=== PATIENT | female | born 1970 | race Caucasian/White ===

== ENCOUNTER 2017-11-23 09:15 | Inpatient (IN) | payer OTHER ==
[~2017-11-23] VITALS: Ht 157.5 cm; Wt 81.9 kg
[~2017-11-23 09:15] MED LIST: BECL8.7A7 PO; CHOL2000 PO; DOCU100C40 PO; ESCI20TA38 PO; ESTR42.53 VG; HYDR-3972 PO; IPRA3AMP IH; METF500T4 PO; MULT-342 PO; PROG100C6 PO; THY60T PO; WARF2TAB PO
[2017-11-23 09:38] LABS: BASOPHILS % (AUTO) 0.6 % (0-1); EOSINOPHILS # (AUTO) 0.6 X10'3 (0-0.9); EOSINOPHILS % (AUTO) 8.6 % (0-6); HEMOGLOBIN 14.1 g/dl (12.0-16.0); LYMPHOCYTES # (AUTO) 2.2 X10'3 (1.1-4.8); LYMPHOCYTES % (AUTO) 30.9 % (21-51); MEAN CORPUSCULAR HEMOGLOBIN 30.7 PG (27.0-31.0); MEAN CORPUSCULAR HGB CONC 34.4 % (33.0-36.5); MEAN CORPUSCULAR VOLUME 89.1 FL (78-98); MEAN PLATELET VOLUME 8.2 FL (7.4-10.4); MONOCYTES # (AUTO) 0.4 X10'3 (0-0.9); MONOCYTES % (AUTO) 5.7 % (2-12); NEUTROPHILS # (AUTO) 3.8 X10'3 (1.8-7.7); NEUTROPHILS % (AUTO) 54.2 % (42-75); PLATELET COUNT 223 X10'3 (140-440); RED BLOOD COUNT 4.61 X10'6 (4.20-5.60); RED CELL DISTRIBUTION WIDTH 14.2 % (11.5-14.5); WHITE BLOOD COUNT 7.1 X10'3 (4.5-11.0)
[2017-11-23 09:49] LABS: INR 2.3 INR; PARTIAL THROMBOPLASTIN TIME 38 SECONDS (22-32); PROTHROMBIN TIME 23.4 SECONDS (9.0-12.0)
[2017-11-23 09:57] LABS: ALANINE AMINOTRANSFERASE 31 U/L (12-78); ALBUMIN 3.7 G/DL (3.4-5.0); ALBUMIN/GLOBULIN RATIO 0.9 (1.1-1.5); ALKALINE PHOSPHATASE 95 IU/L (46-116); ANION GAP 9 (8-16); ASPARTATE AMINO TRANSFERASE 20 U/L (10-37); BILIRUBIN,TOTAL 0.3 MG/DL (0.1-1.0); BLOOD UREA NITROGEN 16 MG/DL (7-18); BUN/CREATININE RATIO 16.2 (6.6-38.0); CALCIUM 8.8 MG/DL (8.5-10.1); CHLORIDE 109 MMOL/L (99-107); CREATININE 0.99 MG/DL (0.40-0.90); GLUCOSE 101 MG/DL (70-104); POTASSIUM 4.1 MMOL/L (3.5-5.1); SODIUM 146 MMOL/L (135-145); TOTAL PROTEIN 7.6 G/DL (6.4-8.2); TROPONIN I < 0.04 NG/ML (0.0-0.05); eGFR 60 ML/MIN
[2017-11-23] MEDS ORDERED: aspirin 325mg tablet PO ONE (10:00)
[2017-11-23] MEDS ORDERED: dextrose 50%-water 50ml dispensing syringe IV PRN ×2 (10:25)
[2017-11-23] MEDS ORDERED: HYDROcodone/acetaminophen 10/325mg tab PO PRN (10:25)
[2017-11-23] MEDS ORDERED: glucagon, human recombinant 1mg kit SUBCUT PRN (10:25)
[2017-11-23] MEDS ORDERED: dextrose ORAL solution 15 GM/59 ML bottle PO PRN ×2 (10:25)
[2017-11-23] MEDS ORDERED: magnesium hydroxide 30ml (MOM) UD suspension PO PRN (10:25)
[2017-11-23] MEDS ORDERED: insulin Lispro (HumaLOG) vial - multi-dose SQ SCH (10:25)
[2017-11-23] MEDS ORDERED: MESSAGE TO PHARMACY PO ONE (10:25)
[2017-11-23] MEDS: normal saline 1000ml 1,000 ML IV SCH ×2 (10:54→13:19)
[2017-11-23 11:08] LABS: HEMOGLOBIN A1C 5.9 % (4.5-6.2)
[2017-11-23] MEDS ORDERED: LORazepam 2 mg/ml vial IV ONE (12:30)
[2017-11-23] MEDS: ipratropium/albuterol 3ml nebule IH SCH ×2 (14:00→20:00)
[2017-11-23] MEDS ORDERED: OMEP-50 PO (16:18)
[2017-11-23] MEDS ORDERED: COU3T PO (16:20)
[2017-11-23] MEDS ORDERED: COU1T PO (16:30)
[2017-11-23] MEDS ORDERED: ASPI81TA52 PO (18:04)
[2017-11-23 18:50] VITALS: BP 129/88
[2017-11-23] MEDS: metFORMIN 500mg tablet PO SCH (20:00)
[2017-11-23] MEDS: docusate sod 100mg capsule PO SCH ×2 (20:00)
[2017-11-23] MEDS ORDERED: insulin glargine (Lantus) pen - multi-dose SQ SCH (21:00)
[2017-11-23] MEDS ORDERED: warfarin 3mg tablet PO ONE (21:00)
[2017-11-23 22:00] VITALS: BP 130/83
[2017-11-24 02:00] VITALS: BP 133/87
[2017-11-24] MEDS: ipratropium/albuterol 3ml nebule IH SCH ×2 (02:00→07:52)
[2017-11-24] MEDS: normal saline 1000ml 1,000 ML IV SCH (04:00)
[2017-11-24 06:04] LABS: BASOPHILS % (AUTO) 0.4 % (0-1); EOSINOPHILS # (AUTO) 0.7 X10'3 (0-0.9); EOSINOPHILS % (AUTO) 10.4 % (0-6); HEMATOCRIT 39.6 % (35.0-45.0); HEMOGLOBIN 13.5 g/dl (12.0-16.0); LYMPHOCYTES # (AUTO) 2.1 X10'3 (1.1-4.8); MEAN CORPUSCULAR HEMOGLOBIN 30.6 PG (27.0-31.0); MEAN CORPUSCULAR HGB CONC 34.2 % (33.0-36.5); MEAN CORPUSCULAR VOLUME 89.6 FL (78-98); MEAN PLATELET VOLUME 8.2 FL (7.4-10.4); MONOCYTES # (AUTO) 0.4 X10'3 (0-0.9); MONOCYTES % (AUTO) 5.5 % (2-12); NEUTROPHILS # (AUTO) 3.6 X10'3 (1.8-7.7); NEUTROPHILS % (AUTO) 52.7 % (42-75); PLATELET COUNT 206 X10'3 (140-440); RED BLOOD COUNT 4.42 X10'6 (4.20-5.60); RED CELL DISTRIBUTION WIDTH 14.1 % (11.5-14.5); WHITE BLOOD COUNT 6.8 X10'3 (4.5-11.0)
[2017-11-24 06:12] LABS: INR 2.1 INR; PROTHROMBIN TIME 21.2 SECONDS (9.0-12.0)
[2017-11-24 06:32] LABS: ALANINE AMINOTRANSFERASE 25 U/L (12-78); ALBUMIN 3.3 G/DL (3.4-5.0); ALBUMIN/GLOBULIN RATIO 0.9 (1.1-1.5); ALKALINE PHOSPHATASE 73 IU/L (46-116); ANION GAP 7 (8-16); ASPARTATE AMINO TRANSFERASE 17 U/L (10-37); BILIRUBIN,TOTAL 0.4 MG/DL (0.1-1.0); BLOOD UREA NITROGEN 12 MG/DL (7-18); CALCIUM 8.4 MG/DL (8.5-10.1); CHLORIDE 112 MMOL/L (99-107); CHOL/HDL RATIO 4.5 (0.00-4.99); CHOLESTEROL 198 MG/DL (0-200); CREATININE 0.75 MG/DL (0.40-0.90); GLUCOSE 102 MG/DL (70-104); HDL CHOLESTEROL 44 MG/DL (35-60); LDL CHOLESTEROL 126 MG/DL (50-100); POTASSIUM 3.7 MMOL/L (3.5-5.1); SODIUM 145 MMOL/L (135-145); TOTAL CARBON DIOXIDE 26.2 MMOL/L (24-32); TOTAL PROTEIN 6.9 G/DL (6.4-8.2); TRIGLYCERIDES 111 MG/DL (20-135); eGFR 82 ML/MIN
[2017-11-24] MEDS ORDERED: acetaminophen 325mg tablet PO PRN (06:35)
[2017-11-24 06:41] VITALS: BP 125/74
[2017-11-24] MEDS: docusate sod 100mg capsule PO SCH ×2 (07:53)
[2017-11-24] MEDS: metFORMIN 500mg tablet PO SCH (07:53)
[2017-11-24] MEDS ORDERED: citalopram 20mg tablet PO SCH (08:00)
[2017-11-24] MEDS ORDERED: vitamin D (cholecalciferol) 1,000 unit tablet PO SCH (08:00)
[2017-11-24] MEDS ORDERED: atorvastatin 10mg tablet PO SCH (08:00)
[2017-11-24] MEDS ORDERED: thyroid, pork 30mg tablet PO SCH (08:00)
[2017-11-24] MEDS ORDERED: fluticasone furoate 100MCG/puff inhaler IH SCH (08:00)
[2017-11-24] MEDS ORDERED: WARFARIN SODIUM PO SCH (08:00)
[2017-11-24] MEDS ORDERED: aspirin 81mg tablet.DR PO SCH (08:00)
[2017-11-24] MEDS ORDERED: progesterone, micronized 100mg capsule PO SCH (08:00)
[2017-11-24] MEDS ORDERED: multivitamins, therapeutics tablet PO SCH (08:00)
[2017-11-24] MEDS ORDERED: escitalopram 20mg tablet PO SCH (08:00)
[2017-11-24 10:00] VITALS: BP 123/70
[2017-11-24] MEDS ORDERED: ATOR10TA PO (10:50)
[2017-11-25] MEDS ORDERED: ESTRADIOL VAGINAL TOP SCH (08:00)
== END 2017-11-24 11:30 | disposition home or self-care (01) | DRG 93 ==
LOC: ER 09:15 → ED HOLD 10:22 → ORTHO 4S 18:47
PROVIDERS: ADMIT Internal Medicine; ATTEND Internal Medicine
DX: R47.81 Slurred speech (principal); E03.9 Hypothyroidism, unspecified; I25.10 Atherosclerotic heart disease of native coronary artery without angina pectoris; Z60.2 Problems related to living alone; Z95.2 Presence of prosthetic heart valve; Z79.899 Other long term (current) drug therapy; Z79.01 Long term (current) use of anticoagulants; E11.9 Type 2 diabetes mellitus without complications
CPT/HCPCS: 36415; 70450; 70544; 70551; 71045; 80053; 80061; 82948; 83036; 84484; 85025; 85610; 85730; 87070; 92616; 93005; 93880; 94760; 97110; 97530; 99285; J1815; J2060; J7030